=== PATIENT | male | born 1925 | race Caucasian/White ===

== ENCOUNTER 2016-08-04 16:30 | Inpatient (IN) | payer MEDICARE ==
[~2016-08-04] VITALS: Ht 165.1 cm; Wt 81.6 kg
[~2016-08-04 16:30] MED LIST: ASPI1CPM PO; ATOR10TA PO; CARB200T8 PO; CILO100T PO; DOCU-270 PO; FURO40TA5 PO; GLIM4TAB2 PO; LEVE250T2 PO; METO25TA3 PO; MULT-24 PO; OMEP20CA10 PO; SITA100T PO; TAMS0.4C34 PO
[2016-08-04] MEDS ORDERED: IV NS 0.9% 1,000 ML ONE (16:52)
[2016-08-04] MEDS ORDERED: IV SET PRIMARY 1 EA INFUS.SET MC ONE (16:52)
[2016-08-04] MEDS ORDERED: IV NS 0.9% 1,000 ML BAG IV ONE (17:00)
[2016-08-04] MEDS ORDERED: ACETAMINOPHEN 650 MG/SUPP.RECT RC ONE ×2 (17:11→18:00)
[2016-08-04 17:15] LABS: INR 1.04 (0.87-1.13); PROTHROMBIN TIME 10.9 SECS (9.5-12.7)
[2016-08-04 17:26] LABS: DIFF TOTAL % 100 %; EOSINOPHILS % (AUTO) 0.1 % (0.0-6.0); HEMATOCRIT 43 % (39-51); HEMOGLOBIN 14.3 g/dL (13.5-17.5); LYMPHOCYTES % (AUTO) 6.4 % (20.0-44.0); MEAN CORPUSCULAR HEMOGLOBIN 30 PG (26.0-33.0); MEAN CORPUSCULAR HGB CONC 34 g/dl (31.0-36.0); MEAN CORPUSCULAR VOLUME 90 fL (80-96); MONOCYTES # (AUTO) 1.2 /CMM (0.1-1.30); MONOCYTES % (AUTO) 7.7 % (2.0-12.0); NEUTROPHILS # (AUTO) 13.2 /CMM (1.8-8.9); NEUTROPHILS % (AUTO) 85.8 % (43.0-81.0); PLATELET COUNT (AUTO) 231 /CMM (150-450); RED BLOOD CELL COUNT(AUTO) 4.71 MIL/uL (4.5-6.0); WHITE BLOOD COUNT (AUTO) 15.4 K/uL (4.3-11.0)
[2016-08-04 17:53] LABS: *LACTIC ACID REFLEX FLAG YES
[2016-08-04 17:56] LABS: KETONES,URINE TRACE (NEGATIVE); LEUKOCYTE ESTERASE ,URINE NEGATIVE (NEGATIVE)
[2016-08-04 17:58] LABS: ADD UA MICROSCOPIC YES
[2016-08-04] MEDS ORDERED: CEFTRIAXONE 1GM BAG (ER ONLY) 50 ML IV ONE ×2 (18:00→18:18)
[2016-08-04 18:04] LABS: TROPONIN I 0.175 ng/mL (0.00-0.056)
[2016-08-04 18:13] LABS: ANION GAP 14 (5-14); CALCIUM, SERUM 8.3 mg/dL (8.5-10.1); CARBON DIOXIDE 29 mmol/L (21-32); CHLORIDE 98 mmol/L (98-107); CREATININE 1.5 mg/dL (0.6-1.3); GLUCOSE 162 mg/dL (74-106); POTASSIUM 4.3 mmol/L (3.5-5.1); SODIUM SERUM 136 mmol/L (136-145); UREA NITROGEN, BLOOD 18 mg/dL (7-18)
[2016-08-04 18:16] LABS: ALANINE AMINOTRANSFERASE 30 U/L (12-78); ALBUMIN 3.4 g/dL (3.4-5.0); ASPARTATE AMINOTRANSFERASE 27 U/L (15-37); BILIRUBIN,DIRECT 0.1 mg/dL (0.0-0.2); BILIRUBIN,TOTAL 0.3 mg/dL (0.2-1.0); INDIRECT BILIRUBIN 0.2 mg/dL (0.0-1.1); TOTAL PROTEIN, SERUM 8.2 g/dL (6.4-8.2)
[2016-08-04 18:18] LABS: ADD URINE CULTURE NO; WBC,URINE 0-2 /HPF (0-3)
[2016-08-04] MEDS ORDERED: IV SET PRIMARY PUMP SET 1 EA INFUS.SET MC ONE (18:18)
[2016-08-04 18:32] LABS: BAND % (MANUAL) 5 % (0.0-5.0); LYMPHOCYTES % (MANUAL) 10 % (16-48)
[2016-08-04 18:33] LABS: ANISOCYTOSIS 1+; PLATELET ESTIMATE ADEQUATE
[2016-08-04 19:50] VITALS: BP 124/55
[2016-08-04 20:00] VITALS: BP 124/55
[2016-08-04] MEDS ORDERED: AZITHROMYCIN 250 MG TABLET PO ONE (21:30)
[2016-08-04] MEDS: CEFTRIAXONE 1 G in IV D5W 50 ML IV SCH (21:30)
[2016-08-04] MEDS ORDERED: CLONIDINE HCL 0.1 MG TABLET PO PRN (21:30)
[2016-08-04] MEDS: AZITHROMYCIN 250 MG TABLET PO SCH (21:30)
[2016-08-04] MEDS ORDERED: AZITHROMYCIN 250 MG TABLET ONE (22:07)
[2016-08-05] VITALS (7 sets, daily range): BP systolic 108–165; BP diastolic 54–79
[2016-08-05] MEDS: ATORVASTATIN 10 MG TABLET PO SCH (08:58)
[2016-08-05] MEDS: DOCUSATE SODIUM 100 MG CAPSULE PO SCH (08:58)
[2016-08-05] MEDS: GLIMEPIRIDE 4 MG TABLET PO SCH (08:59)
[2016-08-05] MEDS: CILOSTAZOL 100 MG TABLET PO SCH ×2 (08:59→16:27)
[2016-08-05] MEDS: SITAGLIPTIN PHOSPHATE 50 MG TABLET PO SCH (08:59)
[2016-08-05] MEDS: CARBAMAZEPINE 200 MG TABLET PO SCH ×2 (08:59→22:11)
[2016-08-05] MEDS: AGGRENOX(ASA/DIPYRIDAMOLE) 1 CAP CPMP.12HR PO SCH ×2 (08:59→16:27)
[2016-08-05] MEDS: FUROSEMIDE 40 MG TABLET PO SCH (09:00)
[2016-08-05] MEDS: MULTIVITAMINS,THERAPEUTIC 1 UDTAB TABLET PO SCH (09:00)
[2016-08-05] MEDS ORDERED: LEVETIRACETAM (250 MG) 250 MG TABLET PO SCH (09:00)
[2016-08-05] MEDS ORDERED: METOPROLOL SUCCINATE 25 MG TAB.SR.24H PO SCH (09:00)
[2016-08-05] MEDS: TAMSULOSIN 0.4 MG CAP.SR.24H PO SCH ×2 (09:00→16:27)
[2016-08-05] MEDS: DOXAZOSIN MESYLATE (1 MG) 1 MG TABLET PO SCH ×2 (09:30→22:00)
[2016-08-05] MEDS: VALSARTAN 80 MG TABLET PO SCH (10:47)
[2016-08-05] MEDS: METOPROLOL SUCCINATE 25 MG TAB.SR.24H PO SCH (16:28)
[2016-08-05] MEDS ORDERED: Z GUARD REMEDY 2 OZ OINT TP PRN (16:30)
[2016-08-05 18:48] LABS: CREATININE, URINE 77.2 MG/DL (30.0-125.0)
[2016-08-05] MEDS: LEVETIRACETAM (250 MG) 250 MG TABLET PO SCH (22:08)
[2016-08-05] MEDS: AZITHROMYCIN 250 MG TABLET PO SCH (22:08)
[2016-08-05] MEDS: CEFTRIAXONE 1 G in IV D5W 50 ML IV SCH (22:12)
[2016-08-05] MEDS ORDERED: IV NS 0.9% 250 ML IV ONE (22:25)
[2016-08-05] MEDS ORDERED: SECONDARY IV SET 1 EA INFUS.SET MC ONE (22:25)
[2016-08-05] MEDS ORDERED: IV SET PRIMARY PUMP SET 1 EA INFUS.SET MC ONE (22:25)
[2016-08-06 06:23] LABS: BASOPHILS % (AUTO) 0.2 % (0.0-2.0); DIFF TOTAL % 100 %; EOSINOPHILS % (AUTO) 0.2 % (0.0-6.0); HEMATOCRIT 33 % (39-51); LYMPHOCYTES # (AUTO) 0.9 /CMM (0.8-4.8); LYMPHOCYTES % (AUTO) 13.3 % (20.0-44.0); MEAN CORPUSCULAR HEMOGLOBIN 30 PG (26.0-33.0); MEAN CORPUSCULAR HGB CONC 34 g/dl (31.0-36.0); MEAN CORPUSCULAR VOLUME 91 fL (80-96); MONOCYTES # (AUTO) 0.8 /CMM (0.1-1.30); MONOCYTES % (AUTO) 11.3 % (2.0-12.0); NEUTROPHILS # (AUTO) 5.1 /CMM (1.8-8.9); PLATELET COUNT (AUTO) 186 /CMM (150-450); RED BLOOD CELL COUNT(AUTO) 3.61 MIL/uL (4.5-6.0); WHITE BLOOD COUNT (AUTO) 6.9 K/uL (4.3-11.0)
[2016-08-06 06:39] LABS: ALBUMIN 2.5 g/dL (3.4-5.0); BILIRUBIN,TOTAL 0.2 mg/dL (0.2-1.0); CALCIUM, SERUM 7.6 mg/dL (8.5-10.1); CREATININE 1.8 mg/dL (0.6-1.3); PHOSPHORUS 3.2 mg/dL (2.5-4.9); POTASSIUM 3.6 mmol/L (3.5-5.1); TOTAL PROTEIN, SERUM 6.1 g/dL (6.4-8.2)
[2016-08-06 06:45] LABS: TROPONIN I 0.158 ng/mL (0.00-0.056)
[2016-08-06 08:00] VITALS: BP 116/52
[2016-08-06] MEDS: MULTIVITAMINS,THERAPEUTIC 1 UDTAB TABLET PO SCH (08:11)
[2016-08-06] MEDS: LEVETIRACETAM (250 MG) 250 MG TABLET PO SCH ×2 (08:11→21:00)
[2016-08-06] MEDS: AGGRENOX(ASA/DIPYRIDAMOLE) 1 CAP CPMP.12HR PO SCH ×2 (08:12→16:18)
[2016-08-06] MEDS: DOCUSATE SODIUM 100 MG CAPSULE PO SCH (08:12)
[2016-08-06] MEDS: CILOSTAZOL 100 MG TABLET PO SCH ×2 (08:12→16:18)
[2016-08-06] MEDS: CARBAMAZEPINE 200 MG TABLET PO SCH ×2 (08:12→21:28)
[2016-08-06] MEDS: SITAGLIPTIN PHOSPHATE 50 MG TABLET PO SCH (08:13)
[2016-08-06] MEDS: ATORVASTATIN 10 MG TABLET PO SCH (08:15)
[2016-08-06] MEDS: VALSARTAN 80 MG TABLET PO SCH (08:15)
[2016-08-06] MEDS: METOPROLOL SUCCINATE 25 MG TAB.SR.24H PO SCH ×2 (08:16→16:23)
[2016-08-06] MEDS: TAMSULOSIN 0.4 MG CAP.SR.24H PO SCH ×2 (08:17→16:18)
[2016-08-06] MEDS: FUROSEMIDE 40 MG TABLET PO SCH (08:17)
[2016-08-06] MEDS: GLIMEPIRIDE 4 MG TABLET PO SCH (08:18)
[2016-08-06] MEDS ORDERED: Z GUARD REMEDY 2 OZ OINT TP PRN (09:30)
[2016-08-06 10:21] LABS: CHOLESTEROL 101 mg/dL (<200); HDL CHOLESTEROL 30 mg/dL (40-60); LDL 48 mg/dL (0-99); TRIGLYCERIDES 112 mg/dL (30-150)
[2016-08-06 16:00] VITALS: BP 114/56
[2016-08-06] MEDS: Z GUARD REMEDY 2 OZ OINT TP SCH (16:25)
[2016-08-06 20:00] VITALS: BP 126/60
[2016-08-06] MEDS: AZITHROMYCIN 250 MG TABLET PO SCH (21:28)
[2016-08-06] MEDS: DOXAZOSIN MESYLATE (1 MG) 1 MG TABLET PO SCH (21:28)
[2016-08-06] MEDS: CEFTRIAXONE 1 G in IV D5W 50 ML IV SCH (21:30)
[2016-08-06 22:00] VITALS: BP 126/60
[2016-08-07 07:38] LABS: CALCIUM, SERUM 7.6 mg/dL (8.5-10.1); CREATININE 1.7 mg/dL (0.6-1.3); POTASSIUM 3.4 mmol/L (3.5-5.1)
[2016-08-07 08:00] VITALS: BP 138/62
[2016-08-07] MEDS: LEVETIRACETAM (250 MG) 250 MG TABLET PO SCH ×2 (09:00→21:09)
[2016-08-07] MEDS: TAMSULOSIN 0.4 MG CAP.SR.24H PO SCH ×3 (10:03→18:05)
[2016-08-07] MEDS: CILOSTAZOL 100 MG TABLET PO SCH ×3 (10:03→18:05)
[2016-08-07] MEDS: ATORVASTATIN 10 MG TABLET PO SCH (10:03)
[2016-08-07] MEDS: CARBAMAZEPINE 200 MG TABLET PO SCH ×2 (10:04→21:07)
[2016-08-07] MEDS: MULTIVITAMINS,THERAPEUTIC 1 UDTAB TABLET PO SCH (10:04)
[2016-08-07] MEDS: SITAGLIPTIN PHOSPHATE 50 MG TABLET PO SCH (10:04)
[2016-08-07] MEDS: METOPROLOL SUCCINATE 25 MG TAB.SR.24H PO SCH ×2 (10:04→18:06)
[2016-08-07] MEDS: DOCUSATE SODIUM 100 MG CAPSULE PO SCH (10:04)
[2016-08-07] MEDS: AGGRENOX(ASA/DIPYRIDAMOLE) 1 CAP CPMP.12HR PO SCH ×3 (10:04→18:05)
[2016-08-07] MEDS: GLIMEPIRIDE 4 MG TABLET PO SCH (10:05)
[2016-08-07] MEDS: Z GUARD REMEDY 2 OZ OINT TP SCH ×2 (10:05→18:06)
[2016-08-07] MEDS ORDERED: POTASSIUM CHLORIDE 20 MEQ TAB.PRT.SR PO SCH (12:00)
[2016-08-07 16:00] VITALS: BP 142/72
[2016-08-07] MEDS: CEFTRIAXONE 1 G in IV D5W 50 ML IV SCH (21:07)
[2016-08-07] MEDS: AZITHROMYCIN 250 MG TABLET PO SCH (21:08)
[2016-08-07] MEDS: DOXAZOSIN MESYLATE (1 MG) 1 MG TABLET PO SCH (21:08)
[2016-08-07 21:34] VITALS: BP 150/68
[2016-08-07 22:00] VITALS: BP 150/68
[2016-08-08 07:51] LABS: BASOPHILS % (AUTO) 0.3 % (0.0-2.0); DIFF TOTAL % 100 %; EOSINOPHILS # (AUTO) 0.1 /CMM (0.0-0.7); EOSINOPHILS % (AUTO) 1.9 % (0.0-6.0); HEMATOCRIT 33 % (39-51); HEMOGLOBIN 10.9 g/dL (13.5-17.5); LYMPHOCYTES # (AUTO) 1.1 /CMM (0.8-4.8); LYMPHOCYTES % (AUTO) 16.3 % (20.0-44.0); MEAN CORPUSCULAR HEMOGLOBIN 30 PG (26.0-33.0); MEAN CORPUSCULAR HGB CONC 33 g/dl (31.0-36.0); MEAN CORPUSCULAR VOLUME 91 fL (80-96); MONOCYTES # (AUTO) 0.9 /CMM (0.1-1.30); MONOCYTES % (AUTO) 13.1 % (2.0-12.0); NEUTROPHILS # (AUTO) 4.5 /CMM (1.8-8.9); NEUTROPHILS % (AUTO) 68.4 % (43.0-81.0); PLATELET COUNT (AUTO) 194 /CMM (150-450); WHITE BLOOD COUNT (AUTO) 6.6 K/uL (4.3-11.0)
[2016-08-08 08:00] VITALS: BP 143/68
[2016-08-08 08:30] VITALS: BP 143/68
[2016-08-08] MEDS: AGGRENOX(ASA/DIPYRIDAMOLE) 1 CAP CPMP.12HR PO SCH ×2 (08:45→18:12)
[2016-08-08] MEDS: LEVETIRACETAM (250 MG) 250 MG TABLET PO SCH ×2 (08:46→21:05)
[2016-08-08] MEDS: DOCUSATE SODIUM 100 MG CAPSULE PO SCH (08:46)
[2016-08-08] MEDS: CARBAMAZEPINE 200 MG TABLET PO SCH ×2 (08:46→21:07)
[2016-08-08] MEDS: METOPROLOL SUCCINATE 25 MG TAB.SR.24H PO SCH ×2 (08:46→18:12)
[2016-08-08] MEDS: GLIMEPIRIDE 4 MG TABLET PO SCH (08:46)
[2016-08-08] MEDS: CILOSTAZOL 100 MG TABLET PO SCH ×2 (08:46→18:14)
[2016-08-08] MEDS: MULTIVITAMINS,THERAPEUTIC 1 UDTAB TABLET PO SCH (08:46)
[2016-08-08] MEDS: ATORVASTATIN 10 MG TABLET PO SCH (08:46)
[2016-08-08] MEDS: SITAGLIPTIN PHOSPHATE 50 MG TABLET PO SCH (08:46)
[2016-08-08] MEDS: TAMSULOSIN 0.4 MG CAP.SR.24H PO SCH ×2 (08:47→18:12)
[2016-08-08] MEDS: Z GUARD REMEDY 2 OZ OINT TP SCH ×2 (08:48→18:13)
[2016-08-08 09:06] LABS: ALBUMIN 2.4 g/dL (3.4-5.0); BILIRUBIN,TOTAL 0.2 mg/dL (0.2-1.0); CALCIUM, SERUM 7.7 mg/dL (8.5-10.1); CREATININE 1.3 mg/dL (0.6-1.3); PHOSPHORUS 2.8 mg/dL (2.5-4.9); POTASSIUM 3.8 mmol/L (3.5-5.1); TOTAL PROTEIN, SERUM 6.2 g/dL (6.4-8.2)
[2016-08-08 16:00] VITALS: BP 133/73
[2016-08-08 16:29] LABS: BASOPHILS # (AUTO) 0.1 /CMM (0.0-0.2); BASOPHILS % (AUTO) 0.8 % (0.0-2.0); DIFF TOTAL % 100 %; EOSINOPHILS # (AUTO) 0.1 /CMM (0.0-0.7); EOSINOPHILS % (AUTO) 1.6 % (0.0-6.0); HEMATOCRIT 33 % (39-51); MEAN CORPUSCULAR HEMOGLOBIN 31 PG (26.0-33.0); MEAN CORPUSCULAR HGB CONC 34 g/dl (31.0-36.0); MEAN CORPUSCULAR VOLUME 90 fL (80-96); MONOCYTES # (AUTO) 0.8 /CMM (0.1-1.30); MONOCYTES % (AUTO) 11.9 % (2.0-12.0); NEUTROPHILS # (AUTO) 4.4 /CMM (1.8-8.9); NEUTROPHILS % (AUTO) 69.7 % (43.0-81.0); PLATELET COUNT (AUTO) 201 /CMM (150-450); WHITE BLOOD COUNT (AUTO) 6.4 K/uL (4.3-11.0)
[2016-08-08 16:38] LABS: CALCIUM, SERUM 7.8 mg/dL (8.5-10.1); CREATININE 1.3 mg/dL (0.6-1.3); POTASSIUM 4.1 mmol/L (3.5-5.1)
[2016-08-08 16:46] LABS: TROPONIN I 0.23 ng/mL (0.00-0.056)
[2016-08-08 16:51] LABS: INR 1.11 (0.87-1.13)
[2016-08-08 20:00] VITALS: BP 153/70
[2016-08-08] MEDS: AZITHROMYCIN 250 MG TABLET PO SCH (21:08)
[2016-08-08] MEDS: CEFTRIAXONE 1 G in IV D5W 50 ML IV SCH (22:23)
[2016-08-08] MEDS: DOXAZOSIN MESYLATE (1 MG) 1 MG TABLET PO SCH (22:34)
[2016-08-09 08:00] VITALS: BP 154/67
[2016-08-09 08:01] LABS: BASOPHILS % (AUTO) 0.2 % (0.0-2.0); DIFF TOTAL % 100 %; EOSINOPHILS # (AUTO) 0.1 /CMM (0.0-0.7); EOSINOPHILS % (AUTO) 1.5 % (0.0-6.0); HEMATOCRIT 33 % (39-51); HEMOGLOBIN 10.9 g/dL (13.5-17.5); LYMPHOCYTES # (AUTO) 1.3 /CMM (0.8-4.8); LYMPHOCYTES % (AUTO) 16.2 % (20.0-44.0); MEAN CORPUSCULAR HEMOGLOBIN 30 PG (26.0-33.0); MEAN CORPUSCULAR HGB CONC 33 g/dl (31.0-36.0); MEAN CORPUSCULAR VOLUME 91 fL (80-96); MONOCYTES # (AUTO) 0.8 /CMM (0.1-1.30); MONOCYTES % (AUTO) 10.8 % (2.0-12.0); NEUTROPHILS # (AUTO) 5.6 /CMM (1.8-8.9); NEUTROPHILS % (AUTO) 71.3 % (43.0-81.0); PLATELET COUNT (AUTO) 213 /CMM (150-450); RED BLOOD CELL COUNT(AUTO) 3.64 MIL/uL (4.5-6.0); WHITE BLOOD COUNT (AUTO) 7.9 K/uL (4.3-11.0)
[2016-08-09 08:06] LABS: CALCIUM, SERUM 8.1 mg/dL (8.5-10.1); CREATININE 1.3 mg/dL (0.6-1.3); PHOSPHORUS 2.5 mg/dL (2.5-4.9); POTASSIUM 3.9 mmol/L (3.5-5.1)
[2016-08-09] MEDS: DOCUSATE SODIUM 100 MG CAPSULE PO SCH (09:34)
[2016-08-09] MEDS: ATORVASTATIN 10 MG TABLET PO SCH (09:34)
[2016-08-09] MEDS: SITAGLIPTIN PHOSPHATE 50 MG TABLET PO SCH (09:34)
[2016-08-09] MEDS: LEVETIRACETAM (250 MG) 250 MG TABLET PO SCH ×2 (09:34→21:02)
[2016-08-09] MEDS: METOPROLOL SUCCINATE 25 MG TAB.SR.24H PO SCH ×2 (09:35→17:56)
[2016-08-09] MEDS: AGGRENOX(ASA/DIPYRIDAMOLE) 1 CAP CPMP.12HR PO SCH ×2 (09:35→17:56)
[2016-08-09] MEDS: CARBAMAZEPINE 200 MG TABLET PO SCH ×2 (09:35→21:03)
[2016-08-09] MEDS: GLIMEPIRIDE 4 MG TABLET PO SCH (09:35)
[2016-08-09] MEDS: MULTIVITAMINS,THERAPEUTIC 1 UDTAB TABLET PO SCH (09:35)
[2016-08-09] MEDS: CILOSTAZOL 100 MG TABLET PO SCH ×2 (09:35→17:56)
[2016-08-09] MEDS: TAMSULOSIN 0.4 MG CAP.SR.24H PO SCH ×2 (09:35→17:56)
[2016-08-09] MEDS: Z GUARD REMEDY 2 OZ OINT TP SCH ×2 (09:36→17:57)
[2016-08-09] MEDS: BISACODYL (5 MG) 5 MG TABLET.DR PO PRN (10:10)
[2016-08-09 16:00] VITALS: BP 143/59
[2016-08-09 20:23] VITALS: BP 136/64
[2016-08-09] MEDS: AZITHROMYCIN 250 MG TABLET PO SCH (21:03)
[2016-08-09] MEDS: DOXAZOSIN MESYLATE (1 MG) 1 MG TABLET PO SCH (22:06)
[2016-08-09] MEDS: CEFTRIAXONE 1 G in IV D5W 50 ML IV SCH (23:13)
[2016-08-10 07:47] LABS: BASOPHILS % (AUTO) 0.2 % (0.0-2.0); DIFF TOTAL % 100 %; EOSINOPHILS # (AUTO) 0.2 /CMM (0.0-0.7); HEMATOCRIT 32 % (39-51); HEMOGLOBIN 10.7 g/dL (13.5-17.5); LYMPHOCYTES # (AUTO) 1.3 /CMM (0.8-4.8); LYMPHOCYTES % (AUTO) 16.1 % (20.0-44.0); MEAN CORPUSCULAR HEMOGLOBIN 30 PG (26.0-33.0); MEAN CORPUSCULAR HGB CONC 33 g/dl (31.0-36.0); MEAN CORPUSCULAR VOLUME 91 fL (80-96); MONOCYTES # (AUTO) 0.9 /CMM (0.1-1.30); MONOCYTES % (AUTO) 11.5 % (2.0-12.0); NEUTROPHILS # (AUTO) 5.6 /CMM (1.8-8.9); NEUTROPHILS % (AUTO) 70.2 % (43.0-81.0); PLATELET COUNT (AUTO) 217 /CMM (150-450); RED BLOOD CELL COUNT(AUTO) 3.54 MIL/uL (4.5-6.0); WHITE BLOOD COUNT (AUTO) 7.9 K/uL (4.3-11.0)
[2016-08-10 07:56] LABS: CALCIUM, SERUM 7.9 mg/dL (8.5-10.1); CREATININE 1.2 mg/dL (0.6-1.3); PHOSPHORUS 2.3 mg/dL (2.5-4.9)
[2016-08-10 08:00] VITALS: BP 138/74
[2016-08-10] MEDS: GLIMEPIRIDE 4 MG TABLET PO SCH (08:12)
[2016-08-10] MEDS: TAMSULOSIN 0.4 MG CAP.SR.24H PO SCH ×2 (08:13→16:53)
[2016-08-10] MEDS: LEVETIRACETAM (250 MG) 250 MG TABLET PO SCH ×2 (08:13→21:51)
[2016-08-10] MEDS: DOCUSATE SODIUM 100 MG CAPSULE PO SCH (08:13)
[2016-08-10] MEDS: SITAGLIPTIN PHOSPHATE 50 MG TABLET PO SCH (08:13)
[2016-08-10] MEDS: ATORVASTATIN 10 MG TABLET PO SCH (08:13)
[2016-08-10] MEDS: CILOSTAZOL 100 MG TABLET PO SCH ×2 (08:13→16:53)
[2016-08-10] MEDS: MULTIVITAMINS,THERAPEUTIC 1 UDTAB TABLET PO SCH (08:13)
[2016-08-10] MEDS: AGGRENOX(ASA/DIPYRIDAMOLE) 1 CAP CPMP.12HR PO SCH ×2 (08:14→16:53)
[2016-08-10] MEDS: CARBAMAZEPINE 200 MG TABLET PO SCH ×2 (08:14→21:51)
[2016-08-10] MEDS: METOPROLOL SUCCINATE 25 MG TAB.SR.24H PO SCH ×2 (08:14→16:54)
[2016-08-10] MEDS: Z GUARD REMEDY 2 OZ OINT TP SCH ×2 (08:16→16:54)
[2016-08-10 16:00] VITALS: BP 141/72
[2016-08-10] MEDS: BISACODYL (5 MG) 5 MG TABLET.DR PO PRN (16:53)
[2016-08-10] MEDS ORDERED: K PHOS NEUTRAL 250 MG TABLET PO ONE (18:00)
[2016-08-10] MEDS: DOXAZOSIN MESYLATE (1 MG) 1 MG TABLET PO SCH (21:52)
[2016-08-10 22:00] VITALS: BP 151/70
[2016-08-10 22:14] VITALS: BP 151/70
[2016-08-11] VITALS: BP 154/71
[2016-08-11 05:00] VITALS: BP 166/81
[2016-08-11 08:00] VITALS: BP 148/78
[2016-08-11 08:36] LABS: CREATININE 1.2 mg/dL (0.6-1.3); PHOSPHORUS 2.6 mg/dL (2.5-4.9)
[2016-08-11] MEDS: LEVETIRACETAM (250 MG) 250 MG TABLET PO SCH (08:42)
[2016-08-11] MEDS: TAMSULOSIN 0.4 MG CAP.SR.24H PO SCH (08:42)
[2016-08-11] MEDS: CILOSTAZOL 100 MG TABLET PO SCH (08:42)
[2016-08-11] MEDS: CARBAMAZEPINE 200 MG TABLET PO SCH (08:42)
[2016-08-11] MEDS: SITAGLIPTIN PHOSPHATE 50 MG TABLET PO SCH (08:42)
[2016-08-11 08:43] VITALS: BP 148/78
[2016-08-11] MEDS: MULTIVITAMINS,THERAPEUTIC 1 UDTAB TABLET PO SCH (08:43)
[2016-08-11] MEDS: METOPROLOL SUCCINATE 25 MG TAB.SR.24H PO SCH (08:43)
[2016-08-11] MEDS: GLIMEPIRIDE 4 MG TABLET PO SCH (08:43)
[2016-08-11] MEDS: DOCUSATE SODIUM 100 MG CAPSULE PO SCH (08:43)
[2016-08-11] MEDS: AGGRENOX(ASA/DIPYRIDAMOLE) 1 CAP CPMP.12HR PO SCH (08:44)
[2016-08-11] MEDS: ATORVASTATIN 10 MG TABLET PO SCH (08:44)
[2016-08-11] MEDS: Z GUARD REMEDY 2 OZ OINT TP SCH (08:45)
== END 2016-08-11 15:53 | DRG 871 ==
LOC: ER 16:58 → TELE 20:02 → MED 08-05 11:12
PROVIDERS: ADMIT Nurse Practitioner Acute Care; ATTEND Nurse Practitioner Acute Care
DX: A41.9 Sepsis, unspecified organism (principal); N17.0 Acute kidney failure with tubular necrosis; I21.4 Non-ST elevation (NSTEMI) myocardial infarction; I63.9 Cerebral infarction, unspecified; I67.4 Hypertensive encephalopathy; I13.0 Hypertensive heart and chronic kidney disease with heart failure and stage 1 through stage 4 chronic kidney disease, or unspecified chronic kidney disease; I50.32 Chronic diastolic (congestive) heart failure; I25.10 Atherosclerotic heart disease of native coronary artery without angina pectoris; E11.22 Type 2 diabetes mellitus with diabetic chronic kidney disease; N18.9 Chronic kidney disease, unspecified; Z86.73 Personal history of transient ischemic attack (TIA), and cerebral infarction without residual deficits; E78.5 Hyperlipidemia, unspecified; G40.909 Epilepsy, unspecified, not intractable, without status epilepticus; K21.9 Gastro-esophageal reflux disease without esophagitis; Z95.0 Presence of cardiac pacemaker; N40.0 Benign prostatic hyperplasia without lower urinary tract symptoms; J40 Bronchitis, not specified as acute or chronic; R65.20 Severe sepsis without septic shock; I25.2 Old myocardial infarction
CPT/HCPCS: 36415; 70450-TC; 71010-TC; 76770-TC; 80048-TC; 80053-TC; 80061-TC; 80076-TC; 80156-TC; 81000-TC; 82542; 82570-TC; 82962-TC; 83605-TC; 83735-TC; 84100-TC; 84484-TC; 85025-TC; 85730-TC; 86850-TC; 86901; 87040-TC; 87081-TC; 87400; 97001-TC; 97110-TC; 97112-TC; 97116-TC; 97530-TC; A4217; A4606; J0696; J7030; J7050; J7060; Z7610

== ENCOUNTER 2016-10-04 19:35 | Inpatient (IN) | payer MEDICARE, BC ==
[~2016-10-04] VITALS: Ht 167.6 cm; Wt 80.3 kg
[2016-10-04] VITALS (7 sets, daily range): BP systolic 176–195; BP diastolic 72–98
[2016-10-04] MEDS ORDERED: IV NS 0.9% 250 ML IV ONE (19:37)
[2016-10-04] MEDS ORDERED: IOHEXOL-350 100 ML VIAL IV ONE (19:37)
[2016-10-04] MEDS ORDERED: CT SWABBABLE VALVE TRANS SET 1 EA INFUS.SET MC ONE (19:37)
[2016-10-04] MEDS ORDERED: LABETALOL HCL IV 100MG VIAL ONE (19:44)
[2016-10-04 19:52] LABS: BASOPHILS # (AUTO) 0.1 /CMM (0.0-0.2); DIFF TOTAL % 100 %; EOSINOPHILS # (AUTO) 0.3 /CMM (0.0-0.7); EOSINOPHILS % (AUTO) 2.7 % (0.0-6.0); HEMATOCRIT 39 % (39-51); HEMOGLOBIN 13.1 g/dL (13.5-17.5); LYMPHOCYTES % (AUTO) 18.8 % (20.0-44.0); MEAN CORPUSCULAR HEMOGLOBIN 31 PG (26.0-33.0); MEAN CORPUSCULAR HGB CONC 33 g/dl (31.0-36.0); MEAN CORPUSCULAR VOLUME 92 fL (80-96); MONOCYTES # (AUTO) 1.2 /CMM (0.1-1.30); MONOCYTES % (AUTO) 11.4 % (2.0-12.0); NEUTROPHILS # (AUTO) 6.8 /CMM (1.8-8.9); NEUTROPHILS % (AUTO) 66.1 % (43.0-81.0); PLATELET COUNT (AUTO) 233 /CMM (150-450); RED BLOOD CELL COUNT(AUTO) 4.27 MIL/uL (4.5-6.0); WHITE BLOOD COUNT (AUTO) 10.4 K/uL (4.3-11.0)
[2016-10-04] MEDS ORDERED: LABETALOL HCL IV 100MG VIAL IV ONE ×2 (20:00→21:00)
[2016-10-04 20:04] LABS: CALCIUM, SERUM 8.1 mg/dL (8.5-10.1); CREATININE 1.2 mg/dL (0.6-1.3); POTASSIUM 3.7 mmol/L (3.5-5.1)
[2016-10-04 20:06] LABS: PROTHROMBIN TIME 10.5 SECS (9.5-12.7)
[2016-10-04 20:12] LABS: TROPONIN I 0.147 ng/mL (0.00-0.056)
[2016-10-04] MEDS ORDERED: LIDOCAINE 2% JEL UROJET 10 ML MM ONE ×2 (20:41→21:00)
[2016-10-04] MEDS ORDERED: LEVETIRACETAM (500MG) 500 MG in IV NS 0.9% 100 ML IV SCH (21:00)
[2016-10-04] MEDS ORDERED: LEVETIRACETAM (500MG) 500 MG/5 ML VIAL IV ONE (21:10)
[2016-10-04] MEDS ORDERED: IV SET PRIMARY PUMP SET 1 EA INFUS.SET MC ONE (21:10)
[2016-10-04] MEDS ORDERED: IV NS 0.9% 100 ML IV ONE (21:10)
[2016-10-04] MEDS ORDERED: ASPIRIN 325 MG TABLET ONE (21:20)
[2016-10-04] MEDS ORDERED: ASPIRIN 325 MG TABLET PO ONE (21:30)
[2016-10-04] MEDS ORDERED: ONDANSETRON HCL/PF 4 MG/2 ML VIAL IVP PRN (22:30)
[2016-10-04] MEDS ORDERED: ACETAMINOPHEN 325 MG TABLET PO PRN (22:30)
[2016-10-04] MEDS ORDERED: HYDROCODONE/APAP 5/325MG 1 EACH TABLET PO PRN (22:30)
[2016-10-04] MEDS ORDERED: DEXTROSE 50%-WATER 50 ML DISP.SYRIN IV PRN (23:00)
[2016-10-04] MEDS ORDERED: hydrALAZINE HCL IV 20 MG VIAL ONE (23:19)
[2016-10-04] MEDS ORDERED: CARBAMAZEPINE 200 MG TABLET ONE (23:20)
[2016-10-04] MEDS: hydrALAZINE HCL IV 20 MG VIAL IV PRN (23:25)
[2016-10-04] MEDS: CARBAMAZEPINE 200 MG TABLET PO SCH (23:25)
[2016-10-05] VITALS (40 sets, daily range): BP systolic 100–166; BP diastolic 46–93
[2016-10-05] MEDS ORDERED: hydrALAZINE HCL IV 20 MG VIAL ONE (02:44)
[2016-10-05] MEDS: hydrALAZINE HCL IV 20 MG VIAL IV PRN (02:55)
[2016-10-05 04:56] LABS: BASOPHILS % (AUTO) 0.3 % (0.0-2.0); DIFF TOTAL % 100 %; EOSINOPHILS # (AUTO) 0.2 /CMM (0.0-0.7); EOSINOPHILS % (AUTO) 2.1 % (0.0-6.0); HEMATOCRIT 38 % (39-51); HEMOGLOBIN 12.6 g/dL (13.5-17.5); LYMPHOCYTES # (AUTO) 1.6 /CMM (0.8-4.8); LYMPHOCYTES % (AUTO) 13.8 % (20.0-44.0); MEAN CORPUSCULAR HEMOGLOBIN 30 PG (26.0-33.0); MEAN CORPUSCULAR HGB CONC 33 g/dl (31.0-36.0); MEAN CORPUSCULAR VOLUME 92 fL (80-96); MONOCYTES # (AUTO) 1.2 /CMM (0.1-1.30); NEUTROPHILS # (AUTO) 8.3 /CMM (1.8-8.9); NEUTROPHILS % (AUTO) 72.8 % (43.0-81.0); PLATELET COUNT (AUTO) 243 /CMM (150-450); RED BLOOD CELL COUNT(AUTO) 4.14 MIL/uL (4.5-6.0); WHITE BLOOD COUNT (AUTO) 11.3 K/uL (4.3-11.0)
[2016-10-05 05:11] LABS: CALCIUM, SERUM 8.3 mg/dL (8.5-10.1); CREATININE 1.1 mg/dL (0.6-1.3); PHOSPHORUS 3.3 mg/dL (2.5-4.9); POTASSIUM 3.8 mmol/L (3.5-5.1)
[2016-10-05] MEDS ORDERED: BLOOD SUGAR DIAGNOSTIC 1 EACH STRIP IN SCH (07:30)
[2016-10-05] MEDS: ATORVASTATIN 10 MG TABLET PO SCH (08:52)
[2016-10-05] MEDS: TAMSULOSIN 0.4 MG CAP.SR.24H PO SCH ×2 (08:52→17:54)
[2016-10-05] MEDS: CILOSTAZOL 100 MG TABLET PO SCH ×2 (08:52→17:54)
[2016-10-05] MEDS: CARBAMAZEPINE 200 MG TABLET PO SCH ×2 (08:53→20:49)
[2016-10-05] MEDS: PANTOPRAZOLE 40 MG TABLET.DR PO SCH (08:53)
[2016-10-05] MEDS: SITAGLIPTIN PHOSPHATE 50 MG TABLET PO SCH (08:53)
[2016-10-05] MEDS: DOCUSATE SODIUM 100 MG CAPSULE PO SCH (08:53)
[2016-10-05] MEDS: AGGRENOX(ASA/DIPYRIDAMOLE) 1 CAP CPMP.12HR PO SCH ×2 (08:55→20:49)
[2016-10-05] MEDS: METOPROLOL SUCCINATE 25 MG TAB.SR.24H PO SCH (08:55)
[2016-10-05] MEDS: GLIMEPIRIDE 4 MG TABLET PO SCH (08:56)
[2016-10-05] MEDS ORDERED: SITAGLIPTIN PHOSPHATE 50 MG TABLET PO SCH (09:00)
[2016-10-05] MEDS ORDERED: LEVETIRACETAM (250 MG) 250 MG TABLET PO SCH (09:00)
[2016-10-05] MEDS ORDERED: FUROSEMIDE 40 MG TABLET PO SCH (09:00)
[2016-10-05] MEDS: MULTIVITAMINS,THERAPEUTIC 1 UDTAB TABLET PO SCH (09:05)
[2016-10-05 09:31] LABS: INR 1.05 (0.87-1.13); PROTHROMBIN TIME 11.3 SECS (9.5-12.7)
[2016-10-05 09:34] LABS: CALCIUM, SERUM 8.5 mg/dL (8.5-10.1); CREATININE 1.1 mg/dL (0.6-1.3); POTASSIUM 3.9 mmol/L (3.5-5.1)
[2016-10-05 09:46] LABS: ALBUMIN 2.9 g/dL (3.4-5.0); BILIRUBIN,TOTAL 0.3 mg/dL (0.2-1.0); TOTAL PROTEIN, SERUM 6.8 g/dL (6.4-8.2)
[2016-10-05 10:30] LABS: THYROID STIMULATING HORMONE 2.185 uIU/mL (0.358-3.74)
[2016-10-05] MEDS ORDERED: LEVOFLOXACIN 750 MG /D5W 150ML 750 MG in PREMIX 1 EA IV SCH (12:00)
[2016-10-05] MEDS: BLOOD SUGAR DIAGNOSTIC 1 EACH STRIP IN SCH ×3 (12:01→21:04)
[2016-10-05] MEDS: INSULIN REGULAR, HUMAN 100 UNIT/ML 3 ML VIAL SQ PRN ×3 (12:15→21:05)
[2016-10-05] MEDS ORDERED: IV SET PRIMARY PUMP SET 1 EA INFUS.SET MC ONE (12:15)
[2016-10-05] MEDS: NEOMY SULF/BACITRAC ZN/POLY 15 GM TUBE TP SCH (12:19)
[2016-10-05] MEDS: LEVOFLOXACIN 750 MG /D5W 150ML 750 MG in PREMIX 1 EA IV SCH (12:19)
[2016-10-05 12:40] LABS: KETONES,URINE NEGATIVE (NEGATIVE); LEUKOCYTE ESTERASE ,URINE TRACE (NEGATIVE)
[2016-10-05] MEDS: IV NS 0.9% 1,000 ML IV PRN (13:07)
[2016-10-05 13:23] LABS: ADD UA MICROSCOPIC YES
[2016-10-05 13:26] LABS: ADD URINE CULTURE NO
[2016-10-05 13:34] LABS: *LACTIC ACID REFLEX FLAG YES
[2016-10-05 13:59] LABS: ALANINE AMINOTRANSFERASE 19 U/L (12-78); ALBUMIN 2.9 g/dL (3.4-5.0); ASPARTATE AMINOTRANSFERASE 13 U/L (15-37); BILIRUBIN,DIRECT 0.1 mg/dL (0.0-0.2); BILIRUBIN,TOTAL 0.3 mg/dL (0.2-1.0); INDIRECT BILIRUBIN 0.2 mg/dL (0.0-1.1); TOTAL PROTEIN, SERUM 6.8 g/dL (6.4-8.2)
[2016-10-05 15:02] LABS: CANNABINOID, URINE NEGATIVE (NEGATIVE); PHENCYCLIDINE SCREEN,URINE NEGATIVE (NEGATIVE)
[2016-10-05 18:52] LABS: THYROID STIMULATING HORMONE 2.251 uIU/mL (0.358-3.74); URIC ACID 5.2 mg/dL (2.6-7.2)
[2016-10-05] MEDS: LEVETIRACETAM (250 MG) 250 MG TABLET PO SCH (20:49)
[2016-10-05] MEDS: ENOXAPARIN SODIUM 30 MG/0.3 ML DISP.SYRIN SQ SCH (20:52)
[2016-10-05] MEDS: ZOLPIDEM TARTRATE 5 MG TABLET PO PRN (23:08)
[2016-10-06] VITALS (22 sets, daily range): BP systolic 97–156; BP diastolic 48–100
[2016-10-06 05:28] LABS: BASOPHILS % (AUTO) 0.4 % (0.0-2.0); DIFF TOTAL % 100 %; EOSINOPHILS # (AUTO) 0.1 /CMM (0.0-0.7); HEMATOCRIT 33 % (39-51); HEMOGLOBIN 10.8 g/dL (13.5-17.5); LYMPHOCYTES # (AUTO) 1.3 /CMM (0.8-4.8); LYMPHOCYTES % (AUTO) 12.1 % (20.0-44.0); MEAN CORPUSCULAR HEMOGLOBIN 31 PG (26.0-33.0); MEAN CORPUSCULAR HGB CONC 33 g/dl (31.0-36.0); MEAN CORPUSCULAR VOLUME 93 fL (80-96); MONOCYTES # (AUTO) 1.3 /CMM (0.1-1.30); MONOCYTES % (AUTO) 11.4 % (2.0-12.0); NEUTROPHILS # (AUTO) 8.4 /CMM (1.8-8.9); NEUTROPHILS % (AUTO) 75.1 % (43.0-81.0); PLATELET COUNT (AUTO) 216 /CMM (150-450); RED BLOOD CELL COUNT(AUTO) 3.53 MIL/uL (4.5-6.0); WHITE BLOOD COUNT (AUTO) 11.1 K/uL (4.3-11.0)
[2016-10-06 05:37] LABS: CALCIUM, SERUM 7.9 mg/dL (8.5-10.1); CREATININE 1.5 mg/dL (0.6-1.3); PHOSPHORUS 2.8 mg/dL (2.5-4.9); POTASSIUM 4.1 mmol/L (3.5-5.1)
[2016-10-06] MEDS: IV NS 0.9% 1,000 ML IV PRN (05:37)
[2016-10-06 05:48] LABS: INR 1.12 (0.87-1.13); PROTHROMBIN TIME 12.1 SECS (9.5-12.7)
[2016-10-06] MEDS ORDERED: Magnesium 1GM/D5W 100ML PREMIX 100 ML IV ONE (06:52)
[2016-10-06] MEDS ORDERED: SECONDARY IV SET 1 EA INFUS.SET MC ONE (06:52)
[2016-10-06] MEDS: Magnesium 1GM/D5W 100ML PREMIX 100 ML IV SCH ×2 (06:56→09:10)
[2016-10-06] MEDS: BLOOD SUGAR DIAGNOSTIC 1 EACH STRIP IN SCH ×4 (07:30→22:00)
[2016-10-06] MEDS: NITROGLYCERIN 30 GM TUBE TP SCH ×3 (09:00→21:14)
[2016-10-06] MEDS: CILOSTAZOL 100 MG TABLET PO SCH ×2 (09:11→17:42)
[2016-10-06] MEDS: ATORVASTATIN 10 MG TABLET PO SCH (09:11)
[2016-10-06] MEDS: MULTIVITAMINS,THERAPEUTIC 1 UDTAB TABLET PO SCH (09:12)
[2016-10-06] MEDS: AGGRENOX(ASA/DIPYRIDAMOLE) 1 CAP CPMP.12HR PO SCH ×2 (09:12→21:11)
[2016-10-06] MEDS: TAMSULOSIN 0.4 MG CAP.SR.24H PO SCH ×2 (09:12→17:42)
[2016-10-06] MEDS: CARBAMAZEPINE 200 MG TABLET PO SCH ×2 (09:12→21:12)
[2016-10-06] MEDS: SITAGLIPTIN PHOSPHATE 50 MG TABLET PO SCH (09:12)
[2016-10-06] MEDS: DOCUSATE SODIUM 100 MG CAPSULE PO SCH (09:12)
[2016-10-06] MEDS: PANTOPRAZOLE 40 MG TABLET.DR PO SCH (09:12)
[2016-10-06] MEDS: LEVETIRACETAM (250 MG) 250 MG TABLET PO SCH ×2 (09:12→21:12)
[2016-10-06] MEDS: GLIMEPIRIDE 4 MG TABLET PO SCH (09:12)
[2016-10-06] MEDS: METOPROLOL SUCCINATE 25 MG TAB.SR.24H PO SCH (09:13)
[2016-10-06] MEDS: NEOMY SULF/BACITRAC ZN/POLY 15 GM TUBE TP SCH (09:14)
[2016-10-06] MEDS: INSULIN REGULAR, HUMAN 100 UNIT/ML 3 ML VIAL SQ PRN ×3 (09:15→17:42)
[2016-10-06] MEDS ORDERED: Magnesium 1GM/D5W 100ML PREMIX 100 ML IV SCH (10:30)
[2016-10-06 11:19] LABS: INR 1.07 (0.87-1.13); PROTHROMBIN TIME 11.6 SECS (9.5-12.7)
[2016-10-06] MEDS: ENOXAPARIN SODIUM 30 MG/0.3 ML DISP.SYRIN SQ SCH (21:13)
[2016-10-07] VITALS: BP 132/65
[2016-10-07 04:28] VITALS: BP 134/68
[2016-10-07] MEDS: BLOOD SUGAR DIAGNOSTIC 1 EACH STRIP IN SCH ×4 (06:21→21:25)
[2016-10-07] MEDS: INSULIN REGULAR, HUMAN 100 UNIT/ML 3 ML VIAL SQ PRN ×2 (06:23→21:27)
[2016-10-07] MEDS: IV NS 0.9% 1,000 ML IV PRN (06:28)
[2016-10-07 06:47] LABS: BASOPHILS % (AUTO) 0.3 % (0.0-2.0); DIFF TOTAL % 100 %; EOSINOPHILS # (AUTO) 0.1 /CMM (0.0-0.7); EOSINOPHILS % (AUTO) 0.6 % (0.0-6.0); HEMATOCRIT 31 % (39-51); HEMOGLOBIN 10.2 g/dL (13.5-17.5); LYMPHOCYTES # (AUTO) 1.2 /CMM (0.8-4.8); LYMPHOCYTES % (AUTO) 9.8 % (20.0-44.0); MEAN CORPUSCULAR HEMOGLOBIN 30 PG (26.0-33.0); MEAN CORPUSCULAR HGB CONC 33 g/dl (31.0-36.0); MEAN CORPUSCULAR VOLUME 92 fL (80-96); MONOCYTES # (AUTO) 1.3 /CMM (0.1-1.30); MONOCYTES % (AUTO) 10.9 % (2.0-12.0); NEUTROPHILS # (AUTO) 9.3 /CMM (1.8-8.9); NEUTROPHILS % (AUTO) 78.4 % (43.0-81.0); PLATELET COUNT (AUTO) 196 /CMM (150-450); RED BLOOD CELL COUNT(AUTO) 3.36 MIL/uL (4.5-6.0); WHITE BLOOD COUNT (AUTO) 11.8 K/uL (4.3-11.0)
[2016-10-07 07:01] LABS: ALBUMIN 2.7 g/dL (3.4-5.0); BILIRUBIN,TOTAL 0.3 mg/dL (0.2-1.0); CALCIUM, SERUM 8.2 mg/dL (8.5-10.1); CREATININE 1.5 mg/dL (0.6-1.3); PHOSPHORUS 3.2 mg/dL (2.5-4.9); TOTAL PROTEIN, SERUM 6.3 g/dL (6.4-8.2)
[2016-10-07 07:02] VITALS: BP 133/65
[2016-10-07] MEDS: CILOSTAZOL 100 MG TABLET PO SCH ×2 (08:16→16:11)
[2016-10-07] MEDS: GLIMEPIRIDE 4 MG TABLET PO SCH (08:16)
[2016-10-07] MEDS: CARBAMAZEPINE 200 MG TABLET PO SCH ×2 (08:17→21:23)
[2016-10-07] MEDS: MULTIVITAMINS,THERAPEUTIC 1 UDTAB TABLET PO SCH (08:17)
[2016-10-07] MEDS: AGGRENOX(ASA/DIPYRIDAMOLE) 1 CAP CPMP.12HR PO SCH ×2 (08:17→21:23)
[2016-10-07] MEDS: PANTOPRAZOLE 40 MG TABLET.DR PO SCH (08:17)
[2016-10-07] MEDS: DOCUSATE SODIUM 100 MG CAPSULE PO SCH (08:17)
[2016-10-07] MEDS: SITAGLIPTIN PHOSPHATE 50 MG TABLET PO SCH (08:17)
[2016-10-07] MEDS: ATORVASTATIN 10 MG TABLET PO SCH (08:17)
[2016-10-07] MEDS: TAMSULOSIN 0.4 MG CAP.SR.24H PO SCH ×2 (08:17→16:11)
[2016-10-07] MEDS: METOPROLOL SUCCINATE 25 MG TAB.SR.24H PO SCH (08:19)
[2016-10-07] MEDS: LEVETIRACETAM (250 MG) 250 MG TABLET PO SCH ×2 (08:19→21:23)
[2016-10-07] MEDS: NEOMY SULF/BACITRAC ZN/POLY 15 GM TUBE TP SCH (08:23)
[2016-10-07] MEDS: NITROGLYCERIN 30 GM TUBE TP SCH ×2 (08:24→21:23)
[2016-10-07 08:28] LABS: TROPONIN I 3.222 ng/mL (0.00-0.056)
[2016-10-07] MEDS ORDERED: CARVEDILOL 6.25 MG TABLET PO SCH (09:00)
[2016-10-07] MEDS: METOPROLOL SUCCINATE 50 MG TAB.SR.24H PO SCH (09:11)
[2016-10-07] MEDS: LEVOFLOXACIN 750 MG /D5W 150ML 750 MG in PREMIX 1 EA IV SCH (12:42)
[2016-10-07] MEDS ORDERED: SECONDARY IV SET 1 EA INFUS.SET MC ONE (12:45)
[2016-10-07 15:51] LABS: CREATININE, URINE 122.2 MG/DL (30.0-125.0); URINE TOTAL PROTEIN 69.8 mg/dL (0-11.9)
[2016-10-07 16:00] VITALS: BP 137/69
[2016-10-07 20:00] VITALS: BP 132/62
[2016-10-07 20:29] VITALS: BP 132/62
[2016-10-07] MEDS: ENOXAPARIN SODIUM 30 MG/0.3 ML DISP.SYRIN SQ SCH (21:24)
[2016-10-07] MEDS: ZOLPIDEM TARTRATE 5 MG TABLET PO PRN (23:25)
[2016-10-08] VITALS: BP 141/77
[2016-10-08] MEDS ORDERED: IV SET PRIMARY PUMP SET 1 EA INFUS.SET MC ONE (03:47)
[2016-10-08] MEDS: IV NS 0.9% 1,000 ML IV PRN ×2 (03:53→23:19)
[2016-10-08 06:10] LABS: BASOPHILS % (AUTO) 0.3 % (0.0-2.0); DIFF TOTAL % 100 %; EOSINOPHILS # (AUTO) 0.2 /CMM (0.0-0.7); EOSINOPHILS % (AUTO) 1.4 % (0.0-6.0); HEMATOCRIT 31 % (39-51); HEMOGLOBIN 10.2 g/dL (13.5-17.5); LYMPHOCYTES % (AUTO) 8.1 % (20.0-44.0); MEAN CORPUSCULAR HEMOGLOBIN 31 PG (26.0-33.0); MEAN CORPUSCULAR HGB CONC 33 g/dl (31.0-36.0); MEAN CORPUSCULAR VOLUME 92 fL (80-96); MONOCYTES # (AUTO) 1.2 /CMM (0.1-1.30); MONOCYTES % (AUTO) 9.5 % (2.0-12.0); NEUTROPHILS % (AUTO) 80.7 % (43.0-81.0); PLATELET COUNT (AUTO) 198 /CMM (150-450); RED BLOOD CELL COUNT(AUTO) 3.33 MIL/uL (4.5-6.0); WHITE BLOOD COUNT (AUTO) 12.4 K/uL (4.3-11.0)
[2016-10-08 06:22] LABS: ALBUMIN 2.6 g/dL (3.4-5.0); BILIRUBIN,TOTAL 0.3 mg/dL (0.2-1.0); CALCIUM, SERUM 8.4 mg/dL (8.5-10.1); CREATININE 1.4 mg/dL (0.6-1.3); PHOSPHORUS 2.9 mg/dL (2.5-4.9); POTASSIUM 3.8 mmol/L (3.5-5.1); TOTAL PROTEIN, SERUM 6.3 g/dL (6.4-8.2)
[2016-10-08 06:30] VITALS: BP 150/70
[2016-10-08] MEDS: BLOOD SUGAR DIAGNOSTIC 1 EACH STRIP IN SCH ×4 (06:30→22:42)
[2016-10-08] MEDS: INSULIN REGULAR, HUMAN 100 UNIT/ML 3 ML VIAL SQ PRN ×3 (06:30→23:20)
[2016-10-08] MEDS: Z GUARD REMEDY 2 OZ OINT TP PRN (06:31)
[2016-10-08 06:32] LABS: TROPONIN I 8.593 ng/mL (0.00-0.056)
[2016-10-08 06:46] VITALS: BP 150/70
[2016-10-08 08:00] VITALS: BP 150/70
[2016-10-08] MEDS: LEVETIRACETAM (250 MG) 250 MG TABLET PO SCH ×2 (08:35→22:38)
[2016-10-08] MEDS: AGGRENOX(ASA/DIPYRIDAMOLE) 1 CAP CPMP.12HR PO SCH ×2 (08:35→22:38)
[2016-10-08] MEDS: CILOSTAZOL 100 MG TABLET PO SCH ×2 (08:35→17:06)
[2016-10-08] MEDS: ATORVASTATIN 10 MG TABLET PO SCH (08:35)
[2016-10-08] MEDS: MULTIVITAMINS,THERAPEUTIC 1 UDTAB TABLET PO SCH (08:35)
[2016-10-08] MEDS: METOPROLOL SUCCINATE 50 MG TAB.SR.24H PO SCH (08:36)
[2016-10-08] MEDS: CARBAMAZEPINE 200 MG TABLET PO SCH ×2 (08:36→22:38)
[2016-10-08] MEDS: PANTOPRAZOLE 40 MG TABLET.DR PO SCH (08:36)
[2016-10-08] MEDS: TAMSULOSIN 0.4 MG CAP.SR.24H PO SCH ×2 (08:36→17:06)
[2016-10-08] MEDS: DOCUSATE SODIUM 100 MG CAPSULE PO SCH (08:36)
[2016-10-08] MEDS: SITAGLIPTIN PHOSPHATE 50 MG TABLET PO SCH (08:36)
[2016-10-08] MEDS: GLIMEPIRIDE 4 MG TABLET PO SCH (08:36)
[2016-10-08] MEDS: NEOMY SULF/BACITRAC ZN/POLY 15 GM TUBE TP SCH (08:38)
[2016-10-08] MEDS: NITROGLYCERIN 30 GM TUBE TP SCH ×2 (08:46→22:42)
[2016-10-08 16:00] VITALS: BP 142/69
[2016-10-08 20:18] VITALS: BP 131/61
[2016-10-08] MEDS: ENOXAPARIN SODIUM 30 MG/0.3 ML DISP.SYRIN SQ SCH (22:48)
[2016-10-09 04:14] LABS: VIT D, 25-HYDROXY 28.1 ng/mL (30.0-100.0)
[2016-10-09] MEDS: BLOOD SUGAR DIAGNOSTIC 1 EACH STRIP IN SCH ×4 (06:38→21:53)
[2016-10-09 07:06] LABS: BASOPHILS % (AUTO) 0.5 % (0.0-2.0); DIFF TOTAL % 100 %; EOSINOPHILS # (AUTO) 0.1 /CMM (0.0-0.7); EOSINOPHILS % (AUTO) 1.4 % (0.0-6.0); HEMATOCRIT 27 % (39-51); LYMPHOCYTES # (AUTO) 1.4 /CMM (0.8-4.8); LYMPHOCYTES % (AUTO) 13.9 % (20.0-44.0); MEAN CORPUSCULAR HEMOGLOBIN 31 PG (26.0-33.0); MEAN CORPUSCULAR HGB CONC 34 g/dl (31.0-36.0); MEAN CORPUSCULAR VOLUME 93 fL (80-96); MONOCYTES # (AUTO) 1.3 /CMM (0.1-1.30); MONOCYTES % (AUTO) 12.5 % (2.0-12.0); NEUTROPHILS # (AUTO) 7.4 /CMM (1.8-8.9); NEUTROPHILS % (AUTO) 71.7 % (43.0-81.0); PLATELET COUNT (AUTO) 171 /CMM (150-450); RED BLOOD CELL COUNT(AUTO) 2.89 MIL/uL (4.5-6.0); WHITE BLOOD COUNT (AUTO) 10.3 K/uL (4.3-11.0)
[2016-10-09 07:07] LABS: ALBUMIN 2.2 g/dL (3.4-5.0); BILIRUBIN,TOTAL 0.3 mg/dL (0.2-1.0); CALCIUM, SERUM 7.9 mg/dL (8.5-10.1); CREATININE 1.4 mg/dL (0.6-1.3); PHOSPHORUS 2.8 mg/dL (2.5-4.9); POTASSIUM 3.7 mmol/L (3.5-5.1); TOTAL PROTEIN, SERUM 5.7 g/dL (6.4-8.2)
[2016-10-09 07:57] LABS: TROPONIN I 4.01 ng/mL (0.00-0.056)
[2016-10-09 08:00] VITALS: BP 125/56
[2016-10-09] MEDS: GLIMEPIRIDE 4 MG TABLET PO SCH (08:58)
[2016-10-09] MEDS: SITAGLIPTIN PHOSPHATE 50 MG TABLET PO SCH (08:59)
[2016-10-09] MEDS: AGGRENOX(ASA/DIPYRIDAMOLE) 1 CAP CPMP.12HR PO SCH ×2 (09:01→21:53)
[2016-10-09] MEDS: CILOSTAZOL 100 MG TABLET PO SCH ×2 (09:01→18:14)
[2016-10-09] MEDS: LEVETIRACETAM (250 MG) 250 MG TABLET PO SCH ×2 (09:02→21:53)
[2016-10-09] MEDS: TAMSULOSIN 0.4 MG CAP.SR.24H PO SCH ×2 (09:02→18:14)
[2016-10-09] MEDS: PANTOPRAZOLE 40 MG TABLET.DR PO SCH (09:02)
[2016-10-09] MEDS: ATORVASTATIN 10 MG TABLET PO SCH (09:02)
[2016-10-09] MEDS: MULTIVITAMINS,THERAPEUTIC 1 UDTAB TABLET PO SCH (09:02)
[2016-10-09] MEDS: METOPROLOL SUCCINATE 50 MG TAB.SR.24H PO SCH (09:02)
[2016-10-09] MEDS: CARBAMAZEPINE 200 MG TABLET PO SCH ×2 (09:03→21:53)
[2016-10-09] MEDS: DOCUSATE SODIUM 100 MG CAPSULE PO SCH (09:03)
[2016-10-09] MEDS: NEOMY SULF/BACITRAC ZN/POLY 15 GM TUBE TP SCH (09:04)
[2016-10-09] MEDS: FUROSEMIDE 40 MG/4 ML VIAL IV SCH ×3 (10:17→18:21)
[2016-10-09] MEDS: POTASSIUM CHLORIDE 20 MEQ TAB.PRT.SR PO SCH ×3 (10:18→12:40)
[2016-10-09] MEDS: NITROGLYCERIN 30 GM TUBE TP SCH ×2 (10:29→21:00)
[2016-10-09] MEDS: INSULIN REGULAR, HUMAN 100 UNIT/ML 3 ML VIAL SQ PRN ×3 (12:13→22:04)
[2016-10-09] MEDS: LEVOFLOXACIN 750 MG /D5W 150ML 750 MG in PREMIX 1 EA IV SCH (14:20)
[2016-10-09] MEDS: VALSARTAN 80 MG TABLET PO SCH (14:23)
[2016-10-09] MEDS ORDERED: SECONDARY IV SET 1 EA INFUS.SET MC ONE (14:29)
[2016-10-09 15:48] VITALS: BP 161/72
[2016-10-09 20:00] VITALS: BP 121/51
[2016-10-09] MEDS: ENOXAPARIN SODIUM 30 MG/0.3 ML DISP.SYRIN SQ SCH (21:54)
[2016-10-10] MEDS: BLOOD SUGAR DIAGNOSTIC 1 EACH STRIP IN SCH ×2 (06:29→11:53)
[2016-10-10] MEDS: INSULIN REGULAR, HUMAN 100 UNIT/ML 3 ML VIAL SQ PRN ×2 (06:33→11:57)
[2016-10-10 06:47] LABS: BASOPHILS % (AUTO) 0.4 % (0.0-2.0); DIFF TOTAL % 100 %; EOSINOPHILS # (AUTO) 0.2 /CMM (0.0-0.7); EOSINOPHILS % (AUTO) 1.7 % (0.0-6.0); HEMATOCRIT 29 % (39-51); HEMOGLOBIN 9.6 g/dL (13.5-17.5); LYMPHOCYTES # (AUTO) 1.3 /CMM (0.8-4.8); LYMPHOCYTES % (AUTO) 12.8 % (20.0-44.0); MEAN CORPUSCULAR HEMOGLOBIN 30 PG (26.0-33.0); MEAN CORPUSCULAR HGB CONC 33 g/dl (31.0-36.0); MEAN CORPUSCULAR VOLUME 93 fL (80-96); MONOCYTES # (AUTO) 1.4 /CMM (0.1-1.30); MONOCYTES % (AUTO) 14.3 % (2.0-12.0); NEUTROPHILS % (AUTO) 70.8 % (43.0-81.0); PLATELET COUNT (AUTO) 187 /CMM (150-450); RED BLOOD CELL COUNT(AUTO) 3.15 MIL/uL (4.5-6.0); WHITE BLOOD COUNT (AUTO) 9.8 K/uL (4.3-11.0)
[2016-10-10 07:18] LABS: ALBUMIN 2.3 g/dL (3.4-5.0); BILIRUBIN,TOTAL 0.2 mg/dL (0.2-1.0); CALCIUM, SERUM 8.4 mg/dL (8.5-10.1); CREATININE 1.6 mg/dL (0.6-1.3); PHOSPHORUS 3.2 mg/dL (2.5-4.9); POTASSIUM 3.9 mmol/L (3.5-5.1); TOTAL PROTEIN, SERUM 6.3 g/dL (6.4-8.2)
[2016-10-10] MEDS: PANTOPRAZOLE 40 MG TABLET.DR PO SCH ×2 (07:30→08:57)
[2016-10-10 08:00] VITALS: BP 139/81
[2016-10-10] MEDS: DOCUSATE SODIUM 100 MG CAPSULE PO SCH (08:47)
[2016-10-10] MEDS: MULTIVITAMINS,THERAPEUTIC 1 UDTAB TABLET PO SCH (08:47)
[2016-10-10] MEDS: CARBAMAZEPINE 200 MG TABLET PO SCH (08:47)
[2016-10-10] MEDS: SITAGLIPTIN PHOSPHATE 50 MG TABLET PO SCH (08:47)
[2016-10-10] MEDS: TAMSULOSIN 0.4 MG CAP.SR.24H PO SCH (08:47)
[2016-10-10] MEDS: GLIMEPIRIDE 4 MG TABLET PO SCH (08:47)
[2016-10-10] MEDS: ATORVASTATIN 10 MG TABLET PO SCH (08:47)
[2016-10-10] MEDS: AGGRENOX(ASA/DIPYRIDAMOLE) 1 CAP CPMP.12HR PO SCH (08:47)
[2016-10-10] MEDS: LEVETIRACETAM (250 MG) 250 MG TABLET PO SCH (08:47)
[2016-10-10] MEDS: CILOSTAZOL 100 MG TABLET PO SCH (08:47)
[2016-10-10] MEDS: VALSARTAN 80 MG TABLET PO SCH (08:48)
[2016-10-10] MEDS: METOPROLOL SUCCINATE 50 MG TAB.SR.24H PO SCH (08:48)
[2016-10-10] MEDS: NITROGLYCERIN 30 GM TUBE TP SCH (08:48)
[2016-10-10] MEDS: NEOMY SULF/BACITRAC ZN/POLY 15 GM TUBE TP SCH (08:55)
[2016-10-10] MEDS: Z GUARD REMEDY 2 OZ OINT TP PRN (08:56)
[2016-10-10 16:00] VITALS: BP 120/80
== END 2016-10-10 15:30 | disposition home health service (06) | DRG 280 ==
LOC: ER 19:36 → ICU 21:16 → TELE 10-06 12:53 → MED 10-07 11:24
PROVIDERS: ADMIT Nurse Practitioner Acute Care; ATTEND Nurse Practitioner Acute Care
DX: I21.4 Non-ST elevation (NSTEMI) myocardial infarction (principal); N17.0 Acute kidney failure with tubular necrosis; G92 Toxic encephalopathy; I50.33 Acute on chronic diastolic (congestive) heart failure; N39.0 Urinary tract infection, site not specified; I13.0 Hypertensive heart and chronic kidney disease with heart failure and stage 1 through stage 4 chronic kidney disease, or unspecified chronic kidney disease; I67.4 Hypertensive encephalopathy; E11.22 Type 2 diabetes mellitus with diabetic chronic kidney disease; N18.3 Chronic kidney disease, stage 3 (moderate); D63.8 Anemia in other chronic diseases classified elsewhere; E78.5 Hyperlipidemia, unspecified; G40.909 Epilepsy, unspecified, not intractable, without status epilepticus; I25.10 Atherosclerotic heart disease of native coronary artery without angina pectoris; Z85.828 Personal history of other malignant neoplasm of skin; Z86.73 Personal history of transient ischemic attack (TIA), and cerebral infarction without residual deficits; Z79.84 Long term (current) use of oral hypoglycemic drugs; K21.9 Gastro-esophageal reflux disease without esophagitis; N40.1 Benign prostatic hyperplasia with lower urinary tract symptoms; I25.2 Old myocardial infarction; Z95.0 Presence of cardiac pacemaker; E83.42 Hypomagnesemia; C44.229 Squamous cell carcinoma of skin of left ear and external auricular canal; K04.7 Periapical abscess without sinus; B96.1 Klebsiella pneumoniae [K. pneumoniae] as the cause of diseases classified elsewhere; I65.23 Occlusion and stenosis of bilateral carotid arteries; I73.9 Peripheral vascular disease, unspecified; G83.9 Paralytic syndrome, unspecified
CPT/HCPCS: 36415; 70450-TC; 70496-TC; 70498-TC; 71010-TC; 80048-TC; 80053-TC; 80061-TC; 80076-TC; 80305; 81000-TC; 82272-TC; 82306; 82378; 82542; 82570-TC; 82728-TC; 82746; 82962-TC; 83540-TC; 83605-TC; 83615-TC; 83735-TC; 83880; 84100-TC; 84155-TC; 84300-TC; 84443-TC; 84484-TC; 84550-TC; 85025-TC; 85610-TC; 85652-TC; 85730-TC; 87040-TC; 87070-TC; 87081-TC; 87086-TC; 87186-TC; 92611-TC; 93307-TC; 93880-TC; 95819-TC; 97001-TC; 97003-TC; 97110-TC; 97112-TC; 97116-TC; 97530-TC; 97535-TC; A4216; A4606; J0360; J1650; J1815; J1940; J1953; J1956; J3475; J3490; J7030; J7050; Q9967; Z7610